=== PATIENT | female | born 1960 | race Caucasian/White ===

== ENCOUNTER 2018-05-23 08:50 | Emergency (ER) | payer OTHER ==
[~2018-05-23] VITALS: Ht 165.1 cm; Wt 76.7 kg
[2018-05-23 08:50] VITALS: BP_SYST 136
[2018-05-23] MEDS ORDERED: DIPHENHYDRAMINE HCL 25 MG CAPSULE PO ONE (09:15)
[2018-05-23] MEDS ORDERED: PREDNISONE 20 MG TABLET PO ONE (09:15)
[2018-05-23 09:50] VITALS: BP_SYST 124
== END 2018-05-23 09:50 | disposition home or self-care (01) ==
LOC: SED 08:50
DX: L23.9 Allergic contact dermatitis, unspecified cause (principal); R03.0 Elevated blood-pressure reading, without diagnosis of hypertension
CPT/HCPCS: 99283; J7512; Q0163

== ENCOUNTER 2018-06-07 08:31 | Outpatient (CLI) | payer OTHER ==
[2018-06-07 10:43] LABS: BASOPHILS % (AUTO) 0.6 % (0.0-2.0); EOSINOPHILS # (AUTO) 0.1 K/uL (0.0-0.4); EOSINOPHILS % (AUTO) 1.1 % (0.0-4.0); HEMATOCRIT 42.1 % (36-48); HEMOGLOBIN 13.5 g/dL (12.0-16.0); LYMPHOCYTES # (AUTO) 1.7 K/uL (1.0-5.5); LYMPHOCYTES % (AUTO) 31.8 % (20.5-51.5); MEAN CORPUSCULAR HEMOGLOBIN 27 pg (27-31); MEAN CORPUSCULAR HGB CONC 32 % (32-36); MEAN CORPUSCULAR VOLUME 85 fL (79.0-98.0); MONOCYTES # (AUTO) 0.4 K/uL (0.0-1.0); MONOCYTES % (AUTO) 6.5 % (1.7-9.3); NEUTROPHILS # (AUTO) 3.3 K/uL (1.8-7.7); PLATELET COUNT (AUTO) 230 K/uL (130-430); RED BLOOD CELL COUNT(AUTO) 4.98 MIL/uL (4.2-6.2); RED CELL DISTRIBUTION WIDTH 12.3 % (9.0-15.0); WHITE BLOOD COUNT (AUTO) 5.5 K/uL (4.8-10.8)
[2018-06-07 11:22] LABS: ALBUMIN 3.7 g/dL (3.4-4.8); CALCIUM 9.3 mg/dL (8.4-11.0); CREATININE 0.59 mg/dL (0.55-1.30); POTASSIUM 3.9 mmol/L (3.5-5.1); THYROID STIMULATING HORMONE 0.98 uIu/mL (0.34-4.82); TOTAL BILIRUBIN 0.4 mg/dL (0.0-1.0)
[2018-06-09 18:46] LABS: HEMOGLOBIN A1C 6.1 % (4.8-5.6)
== END 2018-06-07 20:40 | disposition home or self-care (01) ==
LOC: SUS 08:31
PROVIDERS: ATTEND Internal Medicine
DX: Z12.31 Encounter for screening mammogram for malignant neoplasm of breast (principal); R10.2 Pelvic and perineal pain; R93.2 Abnormal findings on diagnostic imaging of liver and biliary tract; E04.9 Nontoxic goiter, unspecified
CPT/HCPCS: 36415; 76536-TC; 76700-TC; 76830-TC; 76857; 77067; 80053; 80061; 82306; 82607; 83036; 84443-TC; 85025

== ENCOUNTER 2018-07-09 12:17 | Outpatient (CLI) | payer OTHER ==
[2018-07-10 11:02] LABS: HEPATITIS B CORE AB, TOTAL Negative (Negative); HEPATITIS C VIRUS AB <0.1 s/co ratio (0.0-0.9)
[2018-07-11 05:13] LABS: HEPATITIS Be AG Negative (Negative)
== END 2018-07-09 21:14 | disposition home or self-care (01) ==
LOC: SLB 12:17
PROVIDERS: ATTEND Internal Medicine Hospice and Palliative Medicine
DX: Z77.21 Contact with and (suspected) exposure to potentially hazardous body fluids (principal); S60.949A Unspecified superficial injury of unspecified finger, initial encounter; W46.0XXA Contact with hypodermic needle, initial encounter; Y93.9 Activity, unspecified; Y92.239 Unspecified place in hospital as the place of occurrence of the external cause; Y99.0 Civilian activity done for income or pay
CPT/HCPCS: 36415; 86704; 86706; 86803; 87350

== ENCOUNTER 2018-10-31 15:19 | Outpatient (CLI) | payer OTHER ==
[2018-11-01 11:17] LABS: HEPATITIS B CORE AB, TOTAL Negative (Negative); HEPATITIS B SURFACE AG Negative (Negative); HEPATITIS C VIRUS AB <0.1 s/co ratio (0.0-0.9)
== END 2018-10-31 21:21 | disposition home or self-care (01) ==
LOC: SLB 15:19
PROVIDERS: ATTEND Internal Medicine Hospice and Palliative Medicine
DX: Z77.21 Contact with and (suspected) exposure to potentially hazardous body fluids (principal); S60.949A Unspecified superficial injury of unspecified finger, initial encounter; W46.0XXA Contact with hypodermic needle, initial encounter; Y93.F9 Activity, other caregiving; Y92.239 Unspecified place in hospital as the place of occurrence of the external cause; Y99.0 Civilian activity done for income or pay
CPT/HCPCS: 36415; 86704; 86706; 86803; 87340

== ENCOUNTER 2019-01-15 14:59 | Inpatient (IN) | payer OTHER ==
[~2019-01-15] VITALS: Ht 165.1 cm; Wt 74.6 kg
[2019-01-15 15:00] VITALS: BP_SYST 156
--- NOTE | 2019-01-15 15:00 | NUR ---
BROUGHT IN WHEELCHAIR BACK TO BED #3 AND TRIAGED. REPORT GIVEN TO WAQAR
--- NOTE | 2019-01-15 15:29 | NUR ---
# 20 gauge angiocath placed to left ac. Use of asceptic technique. Opsite placed over site. Blood return noted. Blood for lab drawn from site. Flushed with 10 cc of normal saline. No evidence of infiltration noted. Patient tolerated well.
[2019-01-15] MEDS ORDERED: NACL 0.9% 1,000 ML IV ONE (15:30)
[2019-01-15] MEDS ORDERED: MECLIZINE HCL 25 MG TABLET (ANITVERT) PO ONE (15:30)
[2019-01-15] MEDS ORDERED: ACETAMINOPHEN 500 MG TABLET PO ONE (15:30)
--- NOTE | 2019-01-15 15:30 | NUR ---
PATIENT CAME IN FROM WORK COMPLAINING OF SUDDEN ONSET OF [place] AND DIZZINESS. PATIENT STATES SHE HAD ONE EPISODE OF VOMITING. PATIENT ALSO COMPLAINING OF HEADACHE 01/07. PATIENT NOT COMPLAINING OF SOB. PATIENT STATES SHE ATE LUNCH TODAY IN THE [place]. PATIENT ALERT AND ORIENTED X4.
--- NOTE | 2019-01-15 15:37 | NUR ---
PT HR DOWN TO 44, ALERT STAFF BY FOREST ENGINEER, APPROACHED PT AND SHE SAID SHE WAS RESTING. STATES SHE FELT A LITTLE BETTER AT THIS TIME. HR QUICKLY RETURNED TO 68-70, DR EASLEY AWARE OF INCIDENT
--- NOTE | 2019-01-15 15:45 | NUR ---
PATIENT LEFT TO CT VIA GURNEY IN STABLE CONDITION.
--- NOTE | 2019-01-15 15:52 | NUR ---
PATIENT BACK FROM CT IN STABLE CONDITION.
[2019-01-15] MEDS ORDERED: CYM30 PO (15:56)
[2019-01-15] MEDS ORDERED: MULT-1184 PO (15:56)
[2019-01-15] MEDS ORDERED: MOM PO (15:56)
[2019-01-15] MEDS ORDERED: HYDROMORPHONE IM (15:56)
[2019-01-15] MEDS ORDERED: CRAN1TAB5 PO (15:56)
[2019-01-15] MEDS ORDERED: GEL3000G TP (15:56)
[2019-01-15] MEDS ORDERED: LISI10TA5 PO (15:56)
[2019-01-15] MEDS ORDERED: HYDR-4272 PO (15:56)
[2019-01-15 15:57] LABS: HEMATOCRIT 38.4 % (36-48); HEMOGLOBIN 12.5 g/dL (12.0-16.0); MEAN CORPUSCULAR HEMOGLOBIN 28 pg (27-31); MEAN CORPUSCULAR HGB CONC 33 % (32-36); MEAN CORPUSCULAR VOLUME 85 fL (79.0-98.0); RED BLOOD CELL COUNT(AUTO) 4.54 MIL/uL (4.2-6.2); RED CELL DISTRIBUTION WIDTH 13.7 % (9.0-15.0); WHITE BLOOD COUNT (AUTO) 5.6 K/uL (4.8-10.8)
[2019-01-15 15:58] LABS: BASOPHILS % (AUTO) 0.3 % (0.0-2.0); EOSINOPHILS % (AUTO) 0.8 % (0.0-4.0); LYMPHOCYTES # (AUTO) 1.9 K/uL (1.0-5.5); LYMPHOCYTES % (AUTO) 33.7 % (20.5-51.5); MONOCYTES # (AUTO) 0.3 K/uL (0.0-1.0); MONOCYTES % (AUTO) 5.8 % (1.7-9.3); NEUTROPHILS # (AUTO) 3.3 K/uL (1.8-7.7); NEUTROPHILS % (AUTO) 59.4 % (40.0-70.0); PLATELET COUNT (AUTO) 216 K/uL (130-430)
[2019-01-15] MEDS ORDERED: PREG75CA PO (15:58)
[2019-01-15] MEDS ORDERED: AMIN30LI2 PO (15:58)
[2019-01-15] MEDS ORDERED: AMIN30LI25 PO (15:59)
[2019-01-15 16:02] LABS: CALCIUM 8.8 mg/dL (8.4-11.0); CREATININE 0.76 mg/dL (0.55-1.30); POTASSIUM 3.2 mmol/L (3.5-5.1)
[2019-01-15] MEDS ORDERED: BUDE6HFA INH (16:03)
[2019-01-15] MEDS ORDERED: ALBU8.5H8 INH (16:03)
[2019-01-15 16:05] LABS: ALBUMIN 3.6 g/dL (3.4-4.8); PROTHROMBIN TIME 9.9 SECS (9.5-12.5); TOTAL BILIRUBIN 0.2 mg/dL (0.0-1.0)
[2019-01-15] MEDS ORDERED: INSU100I30 SQ (16:07)
[2019-01-15] MEDS ORDERED: BACL10TA PO (16:07)
[2019-01-15] MEDS ORDERED: DOCU-144 PO (16:07)
[2019-01-15] MEDS ORDERED: VITD2000 PO (16:07)
[2019-01-15] MEDS ORDERED: ACET-2165 PO (16:07)
[2019-01-15] MEDS ORDERED: ASPI-1155 PO (16:07)
[2019-01-15] MEDS ORDERED: ZINC220T PO (16:11)
[2019-01-15] MEDS ORDERED: ASCO500T20 PO (16:11)
[2019-01-15 16:15] LABS: BILIRUBIN,URINE NEGATIVE (NEGATIVE); BLOOD, URINE NEGATIVE (NEGATIVE); CLARITY/URINE CLEAR (CLEAR); COLOR,URINE YELLOW (YELLOW); GLUCOSE,URINE NEGATIVE (NEGATIVE); KETONES,URINE NEGATIVE (NEGATIVE); LEUKOCYTE ESTERASE ,URINE 2+ (NEGATIVE); NITRITE, URINE NEGATIVE (NEGATIVE); PH,URINE 5.5 (5.0-8.0); PROTEIN URINE NEGATIVE (NEGATIVE); UROBILINOGEN,URINE 0.2 (0.2-1.0)
[2019-01-15 16:21] LABS: BARBITURATE, URINE NEGATIVE (NEG <=200); BENZODIAZEPINE, URINE NEGATIVE (NEG <=150); CANNABINOID, URINE NEGATIVE (NEG <=50); COCAINE, URINE NEGATIVE (NEG <=150); METHAMPHETAMINES SCREEN,URINE NEGATIVE (NEG <=500); OPIATE, URINE NEGATIVE (NEG <=100); PHENCYCLIDINE SCREEN,URINE NEGATIVE (NEG <=25); UR TRICYCLIC ANTIDEPRESSANTS NEGATIVE (NEG <=300); URINE AMPHETAMINE NEGATIVE (NEG <=500); URINE METHADONE NEGATIVE (NEG <=200); URINE OXYCODONE SCREEN NEGATIVE (NEG <=100); URINE PROPOXYPHENE SCREEN NEGATIVE (NEG <=300)
[2019-01-15 16:33] LABS: RBC,URINE 0-3 /HPF (0-3)
[2019-01-15 16:34] LABS: BACTERIA,URINE FEW /HPF (None Seen); MUCUS,URINE None Seen /LPF (None Seen)
--- NOTE | 2019-01-15 16:48 | NUR ---
PATIENT STATES HEADACHE DOING BETTER BUT STILL DIZZY. MD EASLEY AWARE.
[2019-01-15] MEDS ORDERED: cefTRIAXone 1 GM in D5W 50 ML IV ONE (18:00)
--- NOTE | 2019-01-15 18:20 | NUR ---
Patient will be admitted to care of Dr Michael. Admitted to tele unit. Will go to room 129B. Belongings list completed. Summary report printed. Report will be given at bedside.
--- NOTE | 2019-01-15 18:34 | NUR ---
MEDICATION RECONCILATION DONE IN ERROR Addendum: 01/15/19 at 1834 by DIAMANTE ALL MEDS CANCELLED.
--- NOTE | 2019-01-15 18:35 | NUR ---
Medication reconciliation completed with information provided by PATIENT. Patient states she doesnt take home meds.
[2019-01-15] MEDS ORDERED: cefTRIAXone 1 GM VIAL ONE (18:40)
--- NOTE | 2019-01-15 18:47 | NUR ---
Transfer to tele via ACLS protocol. Licensed nurse present. IV present no signs or symptoms of infiltration.
--- NOTE | 2019-01-15 18:53 | NUR ---
Admission Note Received patient from ER with diagnosis of syncope. Initial Plan of Care discussed-patient verbalized understanding. . Oriented to room, call light, pain management and safety.
[2019-01-15 19:13] VITALS: BP_SYST 143
--- NOTE | 2019-01-15 19:15 | NUR ---
OPENING NOTE Late entry due to patient care. Bedside report received from dayshift nurse. Patient received lying in bed, HOB raised, no s/s of acute distress noted. Patient states that she is comfortable at this time. IV site patent, no signs of infiltration or infection noted. Skin warm and dry to touch. Call light with patient, instructed to call for assistance when needed, patient verbalized understanding. Bed is locked and at lowest position. Will continue to monitor.
[2019-01-15 19:30] LABS: THYROID STIMULATING HORMONE 1.26 uIu/mL (0.34-4.82)
[2019-01-15 20:00] VITALS: BP_SYST 128
[2019-01-15] MEDS ORDERED: ACETAMINOPHEN 325 MG TABLET PO PRN (20:00)
--- NOTE | 2019-01-15 20:55 | NUR ---
CONSULTATION PAGED YES REASON FOR CONSULTATION: SYNCOPE WAS CONSULT CALLED? YES PERSON WHO WAS NOTIFIED: NINI CONSULTING PHYSICIAN: DAVID SKINNER PELTS SPECIALTY: CLEANING PORTER SKINNER PELTS PHONE NUMBER: [phone] REQUESTING PHYSICIAN: BJ
--- NOTE | 2019-01-15 21:00 | NUR ---
ROUNDS Patient in bed, resting at this time. No signs of discomfort noted. Chest rise and fall even bilaterally. Call light with patient.
[2019-01-15] MEDS: NITROFURANTOIN MONOHYD/M-CRYST 100 MG CAPSULE PO SCH (21:13)
--- NOTE | 2019-01-15 22:40 | NUR ---
DIZZY Patient complained of feeling dizzy. Informed patient that MD will be paged. Will continue to monitor and reassess.
--- NOTE | 2019-01-15 22:41 | NUR ---
PAGED I PAGED DR. LORENZO @ [phone] I SPOKE WITH JACK LORENZO CALLED BACK @ [phone]
[2019-01-15] MEDS: MECLIZINE HCL 25 MG TABLET (ANITVERT) PO PRN (22:56)
--- NOTE | 2019-01-15 23:30 | NUR ---
ASSISTED TO BATHROOM Patient requested for assistance to be walked to bathroom and back to bed. Patient tolerated activity well, states that she still feels dizzy but tolerable. Call light with patient. Will continue to monitor.
--- NOTE | 2019-01-16 01:29 | NUR ---
CONSULTATION PAGED: YES REASON FOR CONSULTATION: DIZZINESS WAS CONSULT CALLED? YES PERSON WHO WAS NOTIFIED: KAILEE CONSULTING PHYSICIAN: ADIEL RENDON ASSISTANT PRODUCTION EDITOR SPECIALTY: NEUROLOGY ASSISTANT PRODUCTION EDITOR PHONE NUMBER: [phone] REQUESTING PHYSICIAN: DR. LORENZO
--- NOTE | 2019-01-16 01:30 | NUR ---
ROUNDS Patient in bed sleeping at this time. No s/s of acute distress noted. Breathing even and unlabored. Call light with patient. Will continue to monitor.
[2019-01-16 02:58] VITALS: BP_SYST 125
--- NOTE | 2019-01-16 03:20 | NUR ---
ROUNDS Patient sleeping at this time. No s/s of acute distress noted. Breathing even and unlabored. Call light with patient. Will continue to monitor.
[2019-01-16 06:29] LABS: BASOPHILS % (AUTO) 0.7 % (0.0-2.0); EOSINOPHILS # (AUTO) 0.1 K/uL (0.0-0.4); EOSINOPHILS % (AUTO) 1.9 % (0.0-4.0); HEMATOCRIT 37.4 % (36-48); HEMOGLOBIN 12.2 g/dL (12.0-16.0); LYMPHOCYTES # (AUTO) 2.1 K/uL (1.0-5.5); LYMPHOCYTES % (AUTO) 52.3 % (20.5-51.5); MEAN CORPUSCULAR HEMOGLOBIN 27 pg (27-31); MEAN CORPUSCULAR HGB CONC 33 % (32-36); MEAN CORPUSCULAR VOLUME 84 fL (79.0-98.0); MONOCYTES # (AUTO) 0.3 K/uL (0.0-1.0); MONOCYTES % (AUTO) 6.9 % (1.7-9.3); NEUTROPHILS # (AUTO) 1.5 K/uL (1.8-7.7); NEUTROPHILS % (AUTO) 38.2 % (40.0-70.0); PLATELET COUNT (AUTO) 209 K/uL (130-430); RED BLOOD CELL COUNT(AUTO) 4.45 MIL/uL (4.2-6.2); RED CELL DISTRIBUTION WIDTH 13.5 % (9.0-15.0); WHITE BLOOD COUNT (AUTO) 3.9 K/uL (4.8-10.8)
--- NOTE | 2019-01-16 06:30 | NUR ---
CLOSING NOTES Patient in bed sleeping at this time. No s/s of acute distress noted. Breathing even and unlabored. HOB raised. IV site patent, no signs of infiltration or infection noted. SCDs attached and operating. All needs met throughout shift. Fall and safety precautions maintained throughout shift. Will continue to monitor until patient care is endorsed to oncoming dayshift nurse.
[2019-01-16 07:03] LABS: ALBUMIN 3.5 g/dL (3.4-4.8); CREATININE 0.5 mg/dL (0.55-1.30); POTASSIUM 3.6 mmol/L (3.5-5.1); TOTAL BILIRUBIN 0.4 mg/dL (0.0-1.0)
--- NOTE | 2019-01-16 07:30 | NUR ---
Opening note Patient resting in bed at this time, No SOB, no complaints of pain. A/O x4. Patient complains of dizziness when standing up, educate patient to call for assistance when ambulating. Patient verbalized understanding. IV site patent, and intact. No bleeding noted. On safety and seizure precautions, bed kept in lowest position, bed alarm on, padded side rails in place, 2 side rails up, call light within reach. Will continue to monitor.
[2019-01-16 08:12] LABS: ERYTHROCYTE SEDIMENTATION RATE 4 MM/HR (0-20)
[2019-01-16] MEDS: NITROFURANTOIN MONOHYD/M-CRYST 100 MG CAPSULE PO SCH ×2 (08:20→20:22)
[2019-01-16] MEDS: MECLIZINE HCL 25 MG TABLET (ANITVERT) PO PRN (08:20)
[2019-01-16] MEDS: ACETAMINOPHEN 325 MG TABLET PO PRN (08:21)
[2019-01-16 08:23] VITALS: BP_SYST 121
--- NOTE | 2019-01-16 09:30 | NUR ---
Medications All morning medications given as ordered, patient complained of dizziness and back pain. PRN medications given as ordered, effective. No complaints of pain at this time.
--- NOTE | 2019-01-16 10:00 | NUR ---
MRI Patient went for MRI scan in wheelchair, in stable condition.
--- NOTE | 2019-01-16 10:33 | NUR ---
Nutrition Update Alexi Scale 18 noted. Pt admitted for syncope. Diet: regular BMI: 27.4 kg/m2 RD to follow per nutrition care standards.
--- NOTE | 2019-01-16 10:45 | NUR ---
Rounds patient returned from MRI scan in stable condition, Reconnected to Tele monitor. In stable condition.
--- NOTE | 2019-01-16 12:30 | NUR ---
Lunch Patient sitting up in bed, eating lunch. Tolerating well. No nausea, no vomiting noted.
--- NOTE | 2019-01-16 14:30 | NUR ---
Rounds Patient resting in bed, family at bedside. Patients family states she never had seizure, she has dizziness with Nausea/Vomiting 2xweek. Will inform Dr. Michael.
[2019-01-16 14:47] VITALS: BP_SYST 136
--- NOTE | 2019-01-16 16:50 | NUR ---
MD rounds Patient sitting up in bed, visitor at bedside. Plan of care discussed with patient and family. Patient verbalized understanding.
[2019-01-16] MEDS ORDERED: LORATADINE 10 MG TABLET PO SCH (17:15)
[2019-01-16] MEDS ORDERED: LORATADINE 10 MG TABLET PO ONE (17:15)
[2019-01-16 17:27] VITALS: BP_SYST 120
[2019-01-16] MEDS ORDERED: ATORVASTATIN 20 MG TABLET PO ONE (17:30)
[2019-01-16] MEDS ORDERED: ASPIRIN 81 MG TABLET(ECOTRIN) PO ONE (17:30)
--- NOTE | 2019-01-16 18:48 | NUR ---
Closing note Patient resting in bed at this time, No SOB, no complaints of pain.No nausea, no vomiting, no complaints of pain. IV site patent, and intact. No bleeding noted. On safety and seizure precautions, bed kept in lowest position, bed alarm on, padded side rails in place, 2 side rails up, call light within reach. Patient in stable condition.
[2019-01-16 19:00] VITALS: BP_SYST 140
--- NOTE | 2019-01-16 19:00 | NUR ---
CHANGE OF SHIFT.PT.PRESENTS QUIESCENT AFFECT;CALM,FAMILY@BEDSIDE.PT.PRESENTS NO FURTHER C/O DIZZINESS.NO C/O PAIN,NAUSEA.PT.CAPABLE TO AMBULATE.IV ACCESS;LOCK.GENERAL STATUS STABLE.RESPIRATORY STATUS STABLE.CALL LIGHT/TELEPHONE W/IN THE REACH OF THE PT.I HAVE PROVIDED SOCKS;CLEAN,TO THE PT.
[2019-01-16 20:00] VITALS: BP_SYST 140
--- NOTE | 2019-01-16 20:00 | NUR ---
pt.assessed.v/s assessed;values w/in normal limits.no c/o pain,nausea nor dizziness.i have apprised the pt.that snacks/beverages are available w/in the shift.no requests posited @this hour.family@bedside.o2-sat%=96%@room air.general status stable.respiratory status stable.call light/telephone w/in the reach of the pt.
--- NOTE | 2019-01-16 21:00 | NUR ---
2100pmedications administered.no requests posited@this hour.
--- NOTE | 2019-01-16 21:25 | NUR ---
RN NOTES: REPORT RECEIVED FROM MIMA STANFORD ; WILL CONTINUE WITH PT CARE .
--- NOTE | 2019-01-16 21:30 | NUR ---
pt.reassignment:i have provided the pt's report/data to joselito.joselito to assume the care of the pt.for the remainder of the shift.
--- NOTE | 2019-01-16 21:45 | NUR ---
RN NOTES: PT IS AWAKE AND ORIENTED , COMFORTABLE ; ASSESSMENT DONE ; DENIED ANY CHEST PAIN OR SOB ; NOT IN ANY ACUTE DISTRESS; RESPIRATION IS EVEN AND NON LABORED ; ALL NEEDS MET ; BED IN LOW AND LOCK POSITION , CALL GERBER IN REACH ; ENCOURAGED PT TO CALL FOR ANY HELP ; WILL CONTINUE TO MONITOR PT .
[2019-01-17] VITALS: BP_SYST 143
--- NOTE | 2019-01-17 00:06 | NUR ---
RN NOTES: PT IS SLEEPING , COMFORTABLE ; NOT IN ANY ACUTE DISTRESS; RESPIRATION IS EVEN AND NON LABORED ; WILL CONTINUE TO MONITOR PT .
--- NOTE | 2019-01-17 02:30 | NUR ---
RN NOTES: PT IS SLEEPING , COMFORTABLE ; NOT IN ANY ACUTE DISTRESS; RESPIRATION IS EVEN AND NON LABORED ; WILL CONTINUE TO MONITOR PT .
--- NOTE | 2019-01-17 04:20 | NUR ---
RN NOTES: PT IS SLEEPING , COMFORTABLE ; NOT IN ANY ACUTE DISTRESS; RESPIRATION IS EVEN AND NON LABORED ; WILL CONTINUE TO MONITOR PT .
--- NOTE | 2019-01-17 06:32 | NUR ---
CLOSING NOTES: PT IS STILL SLEEPING , NOT IN ANY ACUTE DISTRESS ; NO C/O ANY CHEST PAIN OR SOB DURING THIS SHIFT ; ALL NEEDS MET ; WILL CONTINUE TO MONITOR AND WILL ENDORSE TO NEXT SHIFT NURSE.
--- NOTE | 2019-01-17 07:20 | NUR ---
Opening note Patient resting in bed at this time, No SOB, no complaints of pain. A/O x4. No nausea, no vomiting. No complaints of dizziness, educated patient to call for assistance when ambulating. Patient verbalized understanding. IV site patent, and intact. No bleeding noted. SCD in place. On safety, bed kept in lowest position, bed alarm on, padded side rails in place, 2 side rails up, call light within reach. Will continue to monitor.
[2019-01-17 08:05] VITALS: BP_SYST 143
[2019-01-17] MEDS: ACETAMINOPHEN 325 MG TABLET PO PRN (08:13)
[2019-01-17] MEDS: NITROFURANTOIN MONOHYD/M-CRYST 100 MG CAPSULE PO SCH (08:13)
[2019-01-17] MEDS ORDERED: LORATADINE 10 MG TABLET PO SCH (09:00)
[2019-01-17] MEDS ORDERED: ASPIRIN 81 MG TABLET(ECOTRIN) PO SCH (09:00)
[2019-01-17] MEDS ORDERED: ATORVASTATIN 20 MG TABLET PO SCH (09:00)
--- NOTE | 2019-01-17 09:30 | NUR ---
Medications All morning medications given as ordered, patient complained back pain. PRN medications given as ordered, effective. No complaints of pain at this time. Patient resting comfortably.
--- NOTE | 2019-01-17 11:30 | NUR ---
Rounds Offered to ambulate patient to the restroom, patient walked with steady gait. Oral care tools provided, offered linen change, patient refused. Assisted patient back to bed, patient in stable condition.
[2019-01-17] MEDS ORDERED: cefTRIAXone 1 GM IVPB PREMIX 50 ML IV ONE (13:00)
[2019-01-17 13:14] VITALS: BP_SYST 128
--- NOTE | 2019-01-17 13:17 | NUR ---
MD rounds Patient seen by Dr. Michael, patient okay to discharge home once cleared with Dr. Kline, and Dr. Ness.
--- NOTE | 2019-01-17 13:18 | NUR ---
Dr. Kline rounds Dr. Kline stated patient is cleared to go home.
--- NOTE | 2019-01-17 13:20 | NUR ---
Dr. Thi Ness called back, patient okay to discharge home.
--- NOTE | 2019-01-17 13:40 | NUR ---
Iv antibiotic Patient to be discharged after IV antibiotic has completed. IV Antibiotics infusing as ordered. No adverse side effects noted. Patient in stable condition.
[2019-01-17 14:56] VITALS: BP_SYST 128
--- NOTE | 2019-01-17 15:40 | NUR ---
D/C Patient Patient given medication reconciliation form and D/C instructions. Exit Care provided. Patient verbalized understanding. MD discussed with patient the results and treatment provided. Ambulatory with steady gait for discharge to home. Patient in stable condition, ID band removed. IV catheter removed, intact and dressing applied, no active bleeding. Rx of medications given. Patient educated on pain management. All belongings sent with patient.
== END 2019-01-17 15:30 | disposition home or self-care (01) | DRG 690 ==
LOC: SED 14:59 → STU 18:18
PROVIDERS: ADMIT Internal Medicine; ATTEND Internal Medicine
DX: N39.0 Urinary tract infection, site not specified (principal); R42 Dizziness and giddiness; E78.5 Hyperlipidemia, unspecified; R55 Syncope and collapse; R51 Headache; R07.89 Other chest pain; E23.6 Other disorders of pituitary gland; Z90.49 Acquired absence of other specified parts of digestive tract
CPT/HCPCS: 36415; 70450-TC; 70551; 71045; 80053; 80061; 80307; 81000-TC; 82533; 83735-TC; 83880; 84443-TC; 84484; 85025; 85379; 85610-TC; 85651-TC; 85730-TC; 87086; 93005; 93306; 93880; 95816; 96361; 96365; 99285; G0378; J0696; J7030; J7060; J8597

== ENCOUNTER 2019-02-05 15:18 | Outpatient (CLI) | payer OTHER ==
[2019-02-06 05:20] LABS: HEPATITIS B CORE AB, TOTAL Negative (Negative); HEPATITIS B SURFACE AG Negative (Negative); HEPATITIS C VIRUS AB <0.1 s/co ratio (0.0-0.9)
== END 2019-02-05 17:58 | disposition home or self-care (01) ==
LOC: SLB 15:18
PROVIDERS: ATTEND Internal Medicine Hospice and Palliative Medicine
DX: Z77.21 Contact with and (suspected) exposure to potentially hazardous body fluids (principal); W46.0XXA Contact with hypodermic needle, initial encounter; T14.8XXA Other injury of unspecified body region, initial encounter; Y93.F9 Activity, other caregiving; Y92.238 Other place in hospital as the place of occurrence of the external cause; Y99.0 Civilian activity done for income or pay; Z20.5 Contact with and (suspected) exposure to viral hepatitis
CPT/HCPCS: 36415; 86704; 86706; 86803; 87340

== ENCOUNTER 2019-08-01 08:10 | Outpatient (CLI) | payer OTHER ==
[2019-08-02 06:06] LABS: HEPATITIS B CORE AB, TOTAL Negative (Negative); HEPATITIS B SURFACE AG Negative (Negative); HEPATITIS C VIRUS AB <0.1 s/co ratio (0.0-0.9)
== END 2019-08-01 21:15 | disposition home or self-care (01) ==
LOC: SLB 08:10
PROVIDERS: ATTEND Internal Medicine Hospice and Palliative Medicine
DX: Z77.21 Contact with and (suspected) exposure to potentially hazardous body fluids (principal)
CPT/HCPCS: 36415; 86704; 86706; 86803; 87340

== ENCOUNTER 2020-05-19 07:05 | Outpatient (CLI) | payer OTHER ==
[2020-05-19 08:19] LABS: BILIRUBIN,URINE NEGATIVE (NEGATIVE); CLARITY/URINE CLEAR (CLEAR); COLOR,URINE YELLOW (YELLOW); GLUCOSE,URINE NEGATIVE (NEGATIVE); KETONES,URINE NEGATIVE (NEGATIVE); LEUKOCYTE ESTERASE ,URINE NEGATIVE (NEGATIVE); NITRITE, URINE NEGATIVE (NEGATIVE); PROTEIN URINE NEGATIVE (NEGATIVE); UROBILINOGEN,URINE 0.2 (0.2-1.0)
[2020-05-19 08:22] LABS: BASOPHILS % (AUTO) 0.5 % (0.0-2.0); EOSINOPHILS # (AUTO) 0.1 K/uL (0.0-0.4); EOSINOPHILS % (AUTO) 2.2 % (0.0-4.0); HEMATOCRIT 37.3 % (36-48); HEMOGLOBIN 12.3 g/dL (12.0-16.0); LYMPHOCYTES # (AUTO) 1.5 K/uL (1.0-5.5); LYMPHOCYTES % (AUTO) 42.4 % (20.5-51.5); MEAN CORPUSCULAR HEMOGLOBIN 28 pg (27-31); MEAN CORPUSCULAR HGB CONC 33 % (32-36); MEAN CORPUSCULAR VOLUME 84 fL (79.0-98.0); MONOCYTES # (AUTO) 0.3 K/uL (0.0-1.0); MONOCYTES % (AUTO) 7.5 % (1.7-9.3); NEUTROPHILS # (AUTO) 1.7 K/uL (1.8-7.7); NEUTROPHILS % (AUTO) 47.4 % (40.0-70.0); PLATELET COUNT (AUTO) 195 K/uL (130-430); RED BLOOD CELL COUNT(AUTO) 4.46 MIL/uL (4.2-6.2); RED CELL DISTRIBUTION WIDTH 13.7 % (9.0-15.0); WHITE BLOOD COUNT (AUTO) 3.6 K/uL (4.8-10.8)
[2020-05-19 08:29] LABS: BLOOD, URINE TRACE (NEGATIVE)
[2020-05-19 08:41] LABS: BACTERIA,URINE RARE /HPF (None Seen); WBC,URINE NONE SEEN /HPF (0-3)
[2020-05-19 08:51] LABS: ALBUMIN 3.9 g/dL (3.4-4.8); CREATININE 0.54 mg/dL (0.55-1.30); POTASSIUM 3.9 mmol/L (3.5-5.1); THYROID STIMULATING HORMONE 2.69 uIu/mL (0.34-4.82); TOTAL BILIRUBIN 0.3 mg/dL (0.0-1.0)
[2020-05-19 09:02] LABS: ERYTHROCYTE SEDIMENTATION RATE 7 MM/HR (0-20)
[2020-05-23 11:24] LABS: HEMOGLOBIN A1C 6.1 % (4.8-5.6)
== END 2020-05-20 07:14 | disposition home or self-care (01) ==
LOC: SLB 07:05
PROVIDERS: ATTEND Internal Medicine
DX: Z00.00 Encounter for general adult medical examination without abnormal findings (principal)
CPT/HCPCS: 36415; 80053; 80061; 81000-TC; 82306; 82607; 83036; 83690-TC; 84443-TC; 85025; 85651-TC

== ENCOUNTER 2020-05-21 07:39 | Outpatient (CLI) | payer OTHER ==
[2020-05-21] MEDS ORDERED: DIATR MEGLU/DIATRIZ SOD 30 ML SOLUTION PO ONE ×2 (08:24→09:27)
[2020-05-21 09:06] LABS: PROTHROMBIN TIME 9.9 SECS (9.5-12.5)
== END 2020-05-21 20:06 | disposition home or self-care (01) ==
LOC: SCT 07:39
PROVIDERS: ATTEND Internal Medicine
DX: Z12.31 Encounter for screening mammogram for malignant neoplasm of breast (principal); I70.0 Atherosclerosis of aorta; Z90.49 Acquired absence of other specified parts of digestive tract
CPT/HCPCS: 36415; 74177; 77067; 82378; 85610; 85730; Q9964; Q9967

== ENCOUNTER 2020-09-02 08:31 | Outpatient (CLI) | payer OTHER ==
[2020-09-02 09:59] LABS: BASOPHILS % (AUTO) 0.6 % (0.0-2.0); HEMATOCRIT 39.7 % (36-48); HEMOGLOBIN 13.2 g/dL (12.0-16.0); LYMPHOCYTES # (AUTO) 1.6 K/uL (1.0-5.5); LYMPHOCYTES % (AUTO) 35.5 % (20.5-51.5); MEAN CORPUSCULAR HEMOGLOBIN 28 pg (27-31); MEAN CORPUSCULAR HGB CONC 33 % (32-36); MEAN CORPUSCULAR VOLUME 84 fL (79.0-98.0); MONOCYTES # (AUTO) 0.2 K/uL (0.0-1.0); NEUTROPHILS # (AUTO) 2.6 K/uL (1.8-7.7); NEUTROPHILS % (AUTO) 57.9 % (40.0-70.0); PLATELET COUNT (AUTO) 201 K/uL (130-430); RED BLOOD CELL COUNT(AUTO) 4.73 MIL/uL (4.2-6.2); RED CELL DISTRIBUTION WIDTH 13.4 % (9.0-15.0); WHITE BLOOD COUNT (AUTO) 4.4 K/uL (4.8-10.8)
[2020-09-02 10:00] LABS: BILIRUBIN,URINE NEGATIVE (NEGATIVE); BLOOD, URINE NEGATIVE (NEGATIVE); COLOR,URINE YELLOW (YELLOW); GLUCOSE,URINE NEGATIVE (NEGATIVE); KETONES,URINE TRACE (NEGATIVE); LEUKOCYTE ESTERASE ,URINE 2+ (NEGATIVE); NITRITE, URINE NEGATIVE (NEGATIVE); PROTEIN URINE NEGATIVE (NEGATIVE); UROBILINOGEN,URINE 0.2 (0.2-1.0)
[2020-09-02 10:08] LABS: CREATININE 0.64 mg/dL (0.55-1.30); POTASSIUM 3.8 mmol/L (3.5-5.1); TOTAL BILIRUBIN 0.3 mg/dL (0.0-1.0)
[2020-09-02 10:13] LABS: CLARITY/URINE SLIGHTLY HAZY (CLEAR)
[2020-09-02 10:41] LABS: BACTERIA,URINE MODERATE /HPF (None Seen); MUCUS,URINE 1+ /LPF (None Seen); RBC,URINE NONE SEEN /HPF (0-3)
== END 2020-09-02 20:51 | disposition home or self-care (01) ==
LOC: SLB 08:31
PROVIDERS: ATTEND Internal Medicine
DX: E78.5 Hyperlipidemia, unspecified (principal); E56.9 Vitamin deficiency, unspecified
CPT/HCPCS: 36415; 80053; 80061; 81000-TC; 82306; 85025; 86886; 86900; 86901

== ENCOUNTER 2020-12-03 10:53 | Outpatient (CLI) | payer OTHER ==
[2020-12-03 11:27] LABS: BASOPHILS % (AUTO) 0.3 % (0.0-2.0); EOSINOPHILS % (AUTO) 0.9 % (0.0-4.0); HEMATOCRIT 39.2 % (36-48); HEMOGLOBIN 12.9 g/dL (12.0-16.0); LYMPHOCYTES # (AUTO) 1.5 K/uL (1.0-5.5); LYMPHOCYTES % (AUTO) 39.5 % (20.5-51.5); MEAN CORPUSCULAR HEMOGLOBIN 28 pg (27-31); MEAN CORPUSCULAR HGB CONC 33 % (32-36); MEAN CORPUSCULAR VOLUME 85 fL (79.0-98.0); MONOCYTES # (AUTO) 0.3 K/uL (0.0-1.0); MONOCYTES % (AUTO) 7.4 % (1.7-9.3); NEUTROPHILS % (AUTO) 51.9 % (40.0-70.0); PLATELET COUNT (AUTO) 211 K/uL (130-430); RED BLOOD CELL COUNT(AUTO) 4.63 MIL/uL (4.2-6.2); RED CELL DISTRIBUTION WIDTH 13.4 % (9.0-15.0); WHITE BLOOD COUNT (AUTO) 3.9 K/uL (4.8-10.8)
[2020-12-03 11:31] LABS: BILIRUBIN,URINE NEGATIVE (NEGATIVE); BLOOD, URINE NEGATIVE (NEGATIVE); CLARITY/URINE CLEAR (CLEAR); COLOR,URINE YELLOW (YELLOW); GLUCOSE,URINE NEGATIVE (NEGATIVE); KETONES,URINE NEGATIVE (NEGATIVE); LEUKOCYTE ESTERASE ,URINE 2+ (NEGATIVE); NITRITE, URINE NEGATIVE (NEGATIVE); PH,URINE 7.5 (5.0-8.0); PROTEIN URINE NEGATIVE (NEGATIVE); UROBILINOGEN,URINE 0.2 (0.2-1.0)
[2020-12-03 11:52] LABS: BACTERIA,URINE FEW /HPF (None Seen); MUCUS,URINE 1+ /LPF (None Seen); RBC,URINE 0-3 /HPF (0-3)
[2020-12-03 11:59] LABS: ALANINE AMINOTRANSFERASE 22 U/L (12-78); ALBUMIN 3.9 g/dL (3.4-4.8); ANION GAP 5 (5-15); ASPARTATE AMINOTRANSFERASE 18 U/L (10-37); CALCIUM 8.7 mg/dL (8.4-11.0); CHLORIDE 109 mmol/L (98-107); GLUCOSE 101 mg/dL (70-99); POTASSIUM 4.4 mmol/L (3.5-5.1); SODIUM SERUM 145 mmol/L (136-145); THYROID STIMULATING HORMONE 1.88 uIu/mL (0.36-3.74); TOTAL BILIRUBIN 0.5 mg/dL (0.0-1.0); UREA NITROGEN, BLOOD 11 mg/dL (8-21)
[2020-12-03 12:00] LABS: GFR AFRICAN AMERICAN 110 mL/min (>90)
[2020-12-03 12:12] LABS: CHOLESTEROL 190 mg/dL (<200); HDL CHOLESTEROL 80 mg/dL (>55); LDL CHOLESTEROL 97 mg/dL (<100); TRIGLYCERIDES 81 mg/dL (30-150)
[2020-12-03 12:13] LABS: C-REACTIVE PROTEIN QUANT < 0.2 mg/dL (0-0.5)
[2020-12-03 12:14] LABS: ERYTHROCYTE SEDIMENTATION RATE 6 MM/HR (0-20)
== END 2020-12-04 16:01 | disposition home or self-care (01) ==
LOC: SLB 10:53
PROVIDERS: ATTEND Internal Medicine
DX: E78.5 Hyperlipidemia, unspecified (principal); L20.84 Intrinsic (allergic) eczema; R42 Dizziness and giddiness; E23.7 Disorder of pituitary gland, unspecified
CPT/HCPCS: 36415; 80053; 80061; 81000; 82306; 82607; 83036; 84443; 85025; 85651-TC; 86140; 87086

== ENCOUNTER 2021-01-11 14:33 | Emergency (ER) | payer OTHER ==
[~2021-01-11] VITALS: Ht 165.1 cm; Wt 76.2 kg
[2021-01-11 14:54] VITALS: BP_SYST 147
[2021-01-11] MEDS ORDERED: IBUP-1969 PO (17:04)
[2021-01-11 17:14] VITALS: BP_SYST 147
== END 2021-01-11 17:15 | disposition home or self-care (01) ==
LOC: SED 14:33
DX: S93.401A Sprain of unspecified ligament of right ankle, initial encounter (principal); S39.012A Strain of muscle, fascia and tendon of lower back, initial encounter; W01.0XXA Fall on same level from slipping, tripping and stumbling without subsequent striking against object, initial encounter; X50.1XXA Overexertion from prolonged static or awkward postures, initial encounter; Y93.89 Activity, other specified; Y92.89 Other specified places as the place of occurrence of the external cause; Y99.8 Other external cause status
CPT/HCPCS: 72100-TC; 99284

== ENCOUNTER 2021-01-28 07:22 | Day surgery (SDC) | payer OTHER, SELFPAY ==
[~2021-01-28] VITALS: Ht 165.1 cm; Wt 76.2 kg
[~2021-01-28 07:22] MED LIST: IBUP-1969 PO
[2021-01-28] MEDS ORDERED: MEPERIDINE 100 MG INJ. 100 MG/ML VIAL ONE (07:51)
[2021-01-28] MEDS ORDERED: MIDAZOLAM HCL 5 MG/5 ML VIAL ONE (07:51)
[2021-01-28] MEDS ORDERED: SIMETHICONE 40 MG/0.6 ML ML ONE (07:51)
[2021-01-28] MEDS ORDERED: fentaNYL CITRATE/PF 100 MCG/2 ML AMP ONE (08:25)
[2021-01-28 10:12] VITALS: BP_SYST 122
== END 2021-01-28 10:30 | disposition home or self-care (01) ==
LOC: SMU 07:22 → SDS 07:22
PROVIDERS: ATTEND Internal Medicine
DX: K59.00 Constipation, unspecified (principal); I10 Essential (primary) hypertension; K64.8 Other hemorrhoids; Z20.822 Contact with and (suspected) exposure to COVID-19; Z79.899 Other long term (current) drug therapy
CPT/HCPCS: 45378; 99152; 99153; G0378; J2250; J3010; U0003; J2175

== ENCOUNTER 2021-07-13 10:52 | Emergency (ER) | payer OTHER ==
[~2021-07-13] VITALS: Ht 167.6 cm; Wt 77.1 kg
[2021-07-13 10:55] VITALS: BP_SYST 143
[2021-07-13] MEDS ORDERED: LORazepam 1 MG TABLET PO ONE (11:45)
[2021-07-13 11:51] LABS: BASOPHILS % (AUTO) 0.3 % (0.0-2.0); EOSINOPHILS % (AUTO) 0.2 % (0.0-4.0); HEMATOCRIT 35.3 % (36-48); HEMOGLOBIN 11.5 g/dL (12.0-16.0); LYMPHOCYTES # (AUTO) 1.1 K/uL (1.0-5.5); LYMPHOCYTES % (AUTO) 15.9 % (20.5-51.5); MEAN CORPUSCULAR HEMOGLOBIN 27 pg (27-31); MEAN CORPUSCULAR HGB CONC 33 % (32-36); MEAN CORPUSCULAR VOLUME 84 fL (79.0-98.0); MONOCYTES # (AUTO) 0.2 K/uL (0.0-1.0); MONOCYTES % (AUTO) 3.2 % (1.7-9.3); NEUTROPHILS # (AUTO) 5.4 K/uL (1.8-7.7); NEUTROPHILS % (AUTO) 80.4 % (40.0-70.0); PLATELET COUNT (AUTO) 228 K/uL (130-430); RED BLOOD CELL COUNT(AUTO) 4.23 MIL/uL (4.2-6.2); RED CELL DISTRIBUTION WIDTH 14.3 % (9.0-15.0); WHITE BLOOD COUNT (AUTO) 6.8 K/uL (4.8-10.8)
--- NOTE | 2021-07-13 12:00 | NUR ---
ALERT AND ORIENTED X4 MOVES ALL EXT NO DRIFT, SPEACH IS CLEAR AND APPROPRIATE, SMILE SYMMETRICAL. VSS
[2021-07-13 12:02] LABS: CALCIUM 9.1 mg/dL (8.4-11.0); CREATININE 0.83 mg/dL (0.55-1.30); POTASSIUM 3.4 mmol/L (3.5-5.1)
[2021-07-13 12:07] LABS: ALBUMIN 3.6 g/dL (3.4-4.8); TOTAL BILIRUBIN 0.3 mg/dL (0.0-1.0)
[2021-07-13] MEDS ORDERED: LORA-258 PO (13:03)
[2021-07-13 13:17] VITALS: BP_SYST 122
--- NOTE | 2021-07-13 13:18 | NUR ---
Patient given written and verbal discharge instructions and verbalizes understanding. LUDIVINA LUZ MD discussed with patient the results and treatment provided. Patient in stable condition. ID arm band removed. IV catheter removed intact and dressing applied, no active bleeding. Rx of ATIVAN given. Patient educated on pain management and to follow up with PMD. Pain Scale 0. Opportunity for questions provided and answered. Medication side effect fact sheet provided.
== END 2021-07-13 13:17 | disposition home or self-care (01) ==
LOC: SED 10:52
DX: R42 Dizziness and giddiness (principal); Z79.899 Other long term (current) drug therapy
CPT/HCPCS: 36415; 70450-TC; 71045; 76376; 80053; 83880; 84484; 85025; 93005; 99285

== ENCOUNTER 2021-08-30 07:00 | Outpatient (CLI) | payer OTHER ==
[~2021-08-30 07:00] MED LIST changes: +LORA-258 PO
[2021-08-30 08:11] LABS: BASOPHILS % (AUTO) 0.3 % (0.0-2.0); EOSINOPHILS # (AUTO) 0.1 K/uL (0.0-0.4); EOSINOPHILS % (AUTO) 0.9 % (0.0-4.0); HEMATOCRIT 36.6 % (36-48); HEMOGLOBIN 12.1 g/dL (12.0-16.0); LYMPHOCYTES # (AUTO) 2.8 K/uL (1.0-5.5); LYMPHOCYTES % (AUTO) 46.8 % (20.5-51.5); MEAN CORPUSCULAR HEMOGLOBIN 28 pg (27-31); MEAN CORPUSCULAR HGB CONC 33 % (32-36); MEAN CORPUSCULAR VOLUME 84 fL (79.0-98.0); MONOCYTES # (AUTO) 0.5 K/uL (0.0-1.0); MONOCYTES % (AUTO) 7.8 % (1.7-9.3); NEUTROPHILS # (AUTO) 2.6 K/uL (1.8-7.7); NEUTROPHILS % (AUTO) 44.2 % (40.0-70.0); PLATELET COUNT (AUTO) 227 K/uL (130-430); RED BLOOD CELL COUNT(AUTO) 4.35 MIL/uL (4.2-6.2); RED CELL DISTRIBUTION WIDTH 14.1 % (9.0-15.0); WHITE BLOOD COUNT (AUTO) 5.9 K/uL (4.8-10.8)
[2021-08-30 08:57] LABS: ERYTHROCYTE SEDIMENTATION RATE 5 MM/HR (0-20)
[2021-08-30 09:03] LABS: BILIRUBIN,URINE NEGATIVE (NEGATIVE); BLOOD, URINE NEGATIVE (NEGATIVE); CLARITY/URINE CLEAR (CLEAR); COLOR,URINE YELLOW (YELLOW); GLUCOSE,URINE NEGATIVE (NEGATIVE); KETONES,URINE TRACE (NEGATIVE); LEUKOCYTE ESTERASE ,URINE NEGATIVE (NEGATIVE); NITRITE, URINE NEGATIVE (NEGATIVE); PH,URINE 5.5 (5.0-8.0); PROTEIN URINE NEGATIVE (NEGATIVE); UROBILINOGEN,URINE 0.2 (0.2-1.0)
[2021-08-30 09:04] LABS: ALANINE AMINOTRANSFERASE 27 U/L (12-78); ALBUMIN 3.7 g/dL (3.4-4.8); ANION GAP 9 (5-15); ASPARTATE AMINOTRANSFERASE 16 U/L (10-37); CALCIUM 8.9 mg/dL (8.4-11.0); CHLORIDE 106 mmol/L (98-107); CREATININE 0.52 mg/dL (0.55-1.30); GLUCOSE 86 mg/dL (70-99); POTASSIUM 3.6 mmol/L (3.5-5.1); SODIUM SERUM 143 mmol/L (136-145); TOTAL BILIRUBIN 0.3 mg/dL (0.0-1.0); UREA NITROGEN, BLOOD 16 mg/dL (8-21)
[2021-08-30 10:20] LABS: GFR AFRICAN AMERICAN 155 mL/min (>90)
[2021-08-30 11:59] LABS: CHOLESTEROL 244 mg/dL (<200); HDL CHOLESTEROL 93 mg/dL (>55); LDL CHOLESTEROL 126 mg/dL (<100); TRIGLYCERIDES 102 mg/dL (30-150)
[2021-08-30 12:12] LABS: C-REACTIVE PROTEIN QUANT < 0.2 mg/dL (0-0.5)
[2021-08-31 08:06] LABS: CORTISOL (SERUM) 0.9 ug/dL (.)
[2021-09-01 10:45] LABS: HEMOGLOBIN A1C 6.2 % (4.8-5.6)
== END 2021-08-30 18:40 | disposition home or self-care (01) ==
LOC: SLB 07:00
PROVIDERS: ATTEND Internal Medicine
DX: Z00.01 Encounter for general adult medical examination with abnormal findings (principal); R42 Dizziness and giddiness; E78.5 Hyperlipidemia, unspecified; R73.9 Hyperglycemia, unspecified; E56.9 Vitamin deficiency, unspecified; E23.7 Disorder of pituitary gland, unspecified
CPT/HCPCS: 36415; 80053; 80061; 81003; 82306; 82533; 82607; 83036; 84146; 84443; 85025; 85651-TC; 86140

== ENCOUNTER 2021-10-13 17:07 | Outpatient (CLI) | payer OTHER | END 2021-10-13 18:39 | disposition home or self-care (01) | LOC: SLB 17:07 | PROVIDERS: ATTEND Internal Medicine | DX: E27.40 Unspecified adrenocortical insufficiency (principal) | CPT/HCPCS: 36415; 82533 ==

== ENCOUNTER 2021-11-09 09:34 | Outpatient (CLI) | payer OTHER | END 2021-11-09 20:32 | disposition home or self-care (01) | LOC: SMA 09:34 | PROVIDERS: ATTEND Internal Medicine | DX: Z12.31 Encounter for screening mammogram for malignant neoplasm of breast (principal); E27.40 Unspecified adrenocortical insufficiency; I70.0 Atherosclerosis of aorta; Z90.49 Acquired absence of other specified parts of digestive tract | CPT/HCPCS: 76376; 77067 ==

== ENCOUNTER 2022-01-02 08:35 | Outpatient (CLI) | payer OTHER ==
[2022-01-02 09:13] LABS: BASOPHILS % (AUTO) 0.3 % (0.0-2.0); EOSINOPHILS # (AUTO) 0.1 K/uL (0.0-0.4); EOSINOPHILS % (AUTO) 1.3 % (0.0-4.0); HEMATOCRIT 37.6 % (36-48); HEMOGLOBIN 12.3 g/dL (12.0-16.0); LYMPHOCYTES # (AUTO) 2.1 K/uL (1.0-5.5); LYMPHOCYTES % (AUTO) 34.9 % (20.5-51.5); MEAN CORPUSCULAR HEMOGLOBIN 27 pg (27-31); MEAN CORPUSCULAR HGB CONC 33 % (32-36); MEAN CORPUSCULAR VOLUME 83 fL (79.0-98.0); MONOCYTES # (AUTO) 0.5 K/uL (0.0-1.0); MONOCYTES % (AUTO) 7.8 % (1.7-9.3); NEUTROPHILS # (AUTO) 3.4 K/uL (1.8-7.7); NEUTROPHILS % (AUTO) 55.7 % (40.0-70.0); PLATELET COUNT (AUTO) 270 K/uL (130-430); RED BLOOD CELL COUNT(AUTO) 4.56 MIL/uL (4.2-6.2); RED CELL DISTRIBUTION WIDTH 13.3 % (9.0-15.0); WHITE BLOOD COUNT (AUTO) 6.1 K/uL (4.8-10.8)
[2022-01-02 09:35] LABS: ALBUMIN 3.7 g/dL (3.4-4.8); CALCIUM 8.7 mg/dL (8.4-11.0); CREATININE 0.71 mg/dL (0.55-1.30); POTASSIUM 3.6 mmol/L (3.5-5.1); THYROID STIMULATING HORMONE 1.36 uIu/mL (0.36-3.74); TOTAL BILIRUBIN 0.5 mg/dL (0.0-1.0)
[2022-01-04 12:15] LABS: HEMOGLOBIN A1C 6.3 % (4.8-5.6)
== END 2022-01-02 20:48 | disposition home or self-care (01) ==
LOC: SLB 08:35
PROVIDERS: ATTEND Internal Medicine
DX: I10 Essential (primary) hypertension (principal); R73.9 Hyperglycemia, unspecified; E78.5 Hyperlipidemia, unspecified; E55.9 Vitamin D deficiency, unspecified; E56.9 Vitamin deficiency, unspecified
CPT/HCPCS: 36415; 80053; 80061; 82306; 82607; 83036; 84443; 85025

== ENCOUNTER 2022-01-03 08:01 | Outpatient (CLI) | payer OTHER | END 2022-01-03 20:45 | disposition home or self-care (01) | LOC: SUS 08:01 | PROVIDERS: ATTEND Internal Medicine | DX: I82.409 Acute embolism and thrombosis of unspecified deep veins of unspecified lower extremity (principal) | CPT/HCPCS: 93970 ==

== ENCOUNTER → 2022-04-05 | Outpatient (CLI) | payer OTHER ==
[2022-04-05 07:50] LABS: BASOPHILS % (AUTO) 0.4 % (0.0-2.0); EOSINOPHILS # (AUTO) 0.1 K/uL (0.0-0.4); EOSINOPHILS % (AUTO) 1.3 % (0.0-4.0); HEMATOCRIT 34.3 % (36-48); HEMOGLOBIN 11.4 g/dL (12.0-16.0); LYMPHOCYTES # (AUTO) 1.8 K/uL (1.0-5.5); LYMPHOCYTES % (AUTO) 36.8 % (20.5-51.5); MEAN CORPUSCULAR HEMOGLOBIN 27 pg (27-31); MEAN CORPUSCULAR HGB CONC 33 % (32-36); MEAN CORPUSCULAR VOLUME 82 fL (79.0-98.0); MONOCYTES # (AUTO) 0.4 K/uL (0.0-1.0); MONOCYTES % (AUTO) 8.5 % (1.7-9.3); NEUTROPHILS # (AUTO) 2.6 K/uL (1.8-7.7); PLATELET COUNT (AUTO) 240 K/uL (130-430); RED BLOOD CELL COUNT(AUTO) 4.17 MIL/uL (4.2-6.2); RED CELL DISTRIBUTION WIDTH 14.9 % (9.0-15.0)
[2022-04-05 08:27] LABS: ALBUMIN 3.2 g/dL (3.4-4.8); CALCIUM 8.8 mg/dL (8.4-11.0); CREATININE 0.71 mg/dL (0.55-1.30); POTASSIUM 3.4 mmol/L (3.5-5.1); THYROID STIMULATING HORMONE 1.05 uIu/mL (0.36-3.74); TOTAL BILIRUBIN 0.2 mg/dL (0.0-1.0)
[2022-04-06 09:41] LABS: HEMOGLOBIN A1C 6.4 % (4.8-5.6)
== END | disposition home or self-care (01) ==
LOC: SLB 07:08
PROVIDERS: ATTEND Internal Medicine
DX: I10 Essential (primary) hypertension (principal); E03.9 Hypothyroidism, unspecified; E55.9 Vitamin D deficiency, unspecified; E78.5 Hyperlipidemia, unspecified; R73.9 Hyperglycemia, unspecified
CPT/HCPCS: 36415; 80053; 80061; 82306; 83036; 84443; 85025

== ENCOUNTER 2022-07-22 10:12 | Emergency (ER) | payer OTHER ==
[~2022-07-22] VITALS: Ht 157.5 cm; Wt 72.6 kg
[2022-07-22 10:15] VITALS: BP_SYST 136
--- NOTE | 2022-07-22 11:20 | NUR ---
ER at bedside examining patient.
--- NOTE | 2022-07-22 11:30 | NUR ---
Note rodriguez in EDM - 07/22/22 at 1203 by CLIVE 62-year-old female with no past medical history, presents with palpitations dizziness. Patient states symptoms started earlier this morning while she was working. She denies any chest pain or shortness of breath. Patient states she has had history of similar symptoms in the past, been evaluated by her PCP for this. She states that her dizziness is nonpositional. Denies any vomiting or diarrhea, complains of mild nausea. No abdominal pain. No urinary symptoms. No recent fevers or illnesses. Past medical history Diabetes pt denies morning medication compliance.
[2022-07-22] MEDS ORDERED: ACETAMINOPHEN 500 MG TABLET PO ONE (11:45)
[2022-07-22] MEDS ORDERED: MECLIZINE HCL 25 MG TABLET (ANITVERT) PO ONE (11:45)
[2022-07-22] MEDS ORDERED: ONDANSETRON 4 MG ODT TAB PO ONE (11:45)
--- NOTE | 2022-07-22 12:03 | NUR ---
62-year-old female with no past medical history, presents with palpitations dizziness. Patient states symptoms started earlier this morning while she was working. She denies any chest pain or shortness of breath. Patient states she has had history of similar symptoms in the past, been evaluated by her PCP for this. She states that her dizziness is nonpositional. Denies any vomiting or diarrhea, complains of mild nausea. No abdominal pain. No urinary symptoms. No recent fevers or illnesses.
[2022-07-22 12:05] LABS: BASOPHILS % (AUTO) 0.5 % (0.0-2.0); EOSINOPHILS % (AUTO) 0.6 % (0.0-4.0); HEMATOCRIT 31.5 % (36-48); HEMOGLOBIN 10.3 g/dL (12.0-16.0); LYMPHOCYTES # (AUTO) 1.2 K/uL (1.0-5.5); LYMPHOCYTES % (AUTO) 18.2 % (20.5-51.5); MEAN CORPUSCULAR HEMOGLOBIN 26 pg (27-31); MEAN CORPUSCULAR HGB CONC 33 % (32-36); MEAN CORPUSCULAR VOLUME 81 fL (79.0-98.0); MONOCYTES # (AUTO) 0.4 K/uL (0.0-1.0); MONOCYTES % (AUTO) 6.1 % (1.7-9.3); NEUTROPHILS # (AUTO) 4.9 K/uL (1.8-7.7); NEUTROPHILS % (AUTO) 74.6 % (40.0-70.0); PLATELET COUNT (AUTO) 270 K/uL (130-430); RED CELL DISTRIBUTION WIDTH 13.5 % (9.0-15.0); WHITE BLOOD COUNT (AUTO) 6.6 K/uL (4.8-10.8)
[2022-07-22 12:15] LABS: ANION GAP 5 (5-15); CALCIUM 8.7 mg/dL (8.4-11.0); CHLORIDE 108 mmol/L (98-107); CREATININE 0.57 mg/dL (0.55-1.30); GLUCOSE 107 mg/dL (70-99); UREA NITROGEN, BLOOD 21 mg/dL (8-21)
[2022-07-22 12:17] LABS: GFR AFRICAN AMERICAN 139 mL/min (>90)
[2022-07-22 12:26] LABS: ALANINE AMINOTRANSFERASE 25 U/L (12-78); ALBUMIN 3.4 g/dL (3.4-4.8); ASPARTATE AMINOTRANSFERASE 18 U/L (10-37); TOTAL BILIRUBIN 0.2 mg/dL (0.0-1.0)
[2022-07-22] MEDS ORDERED: MECL-225 PO (12:55)
--- NOTE | 2022-07-22 13:24 | NUR ---
Patient given written and verbal discharge instructions and verbalizes understanding. ER MD discussed with patient the results and treatment provided. Patient in stable condition. ID arm band removed. Patient educated on pain management and to follow up with PMD. Opportunity for questions provided and answered. Medication side effect fact sheet provided.
[2022-07-22 13:25] VITALS: BP_SYST 136
== END 2022-07-22 13:24 | disposition home or self-care (01) ==
LOC: SED 10:12
DX: R00.2 Palpitations (principal); R42 Dizziness and giddiness; Z79.899 Other long term (current) drug therapy
CPT/HCPCS: 99285; 71045; 80053; 85025; 84484; 36415; 93005; J8597; Q0162

== ENCOUNTER 2022-09-07 16:20 | Outpatient (CLI) | payer OTHER ==
[~2022-09-07 16:20] MED LIST changes: +MECL-225 PO
[2022-09-07 18:16] LABS: TOTAL IRON BIND. CAPACITY 461 ug/dL (250-450)
[2022-09-07 18:17] LABS: BASOPHILS % (AUTO) 0.4 % (0.0-2.0); EOSINOPHILS # (AUTO) 0.1 K/uL (0.0-0.4); EOSINOPHILS % (AUTO) 2.6 % (0.0-4.0); HEMATOCRIT 29.9 % (36-48); HEMOGLOBIN 9.7 g/dL (12.0-16.0); LYMPHOCYTES # (AUTO) 1.5 K/uL (1.0-5.5); LYMPHOCYTES % (AUTO) 27.2 % (20.5-51.5); MEAN CORPUSCULAR HEMOGLOBIN 25 pg (27-31); MEAN CORPUSCULAR HGB CONC 32 % (32-36); MEAN CORPUSCULAR VOLUME 78 fL (79.0-98.0); MONOCYTES # (AUTO) 0.3 K/uL (0.0-1.0); MONOCYTES % (AUTO) 5.6 % (1.7-9.3); NEUTROPHILS # (AUTO) 3.5 K/uL (1.8-7.7); NEUTROPHILS % (AUTO) 64.2 % (40.0-70.0); PLATELET COUNT (AUTO) 311 K/uL (130-430); RED BLOOD CELL COUNT(AUTO) 3.84 MIL/uL (4.2-6.2); RED CELL DISTRIBUTION WIDTH 13.9 % (9.0-15.0); WHITE BLOOD COUNT (AUTO) 5.4 K/uL (4.8-10.8)
[2022-09-07 18:21] LABS: FREE T4 (FREE THYROXINE) 0.9 ng/dL (0.6-1.6); THYROID STIMULATING HORMONE 1.48 uIu/mL (0.34-4.82)
== END 2022-09-07 18:54 | disposition home or self-care (01) ==
LOC: SLB 16:20
PROVIDERS: ATTEND Internal Medicine
DX: D64.9 Anemia, unspecified (principal)
CPT/HCPCS: 36415; 82607; 82746; 83540; 83550; 84439; 84443; 85025

== ENCOUNTER 2022-10-06 07:02 | Day surgery (SDC) | payer OTHER ==
[~2022-10-06] VITALS: Ht 165.1 cm; Wt 80.7 kg
[2022-10-06] MEDS ORDERED: BENZOCAINE 20% 0.5mL UD SPRAY MM ONE ×2 (08:31→08:32)
[2022-10-06] MEDS ORDERED: MEPERIDINE 50 MG/ML VIAL ONE (08:32)
[2022-10-06] MEDS ORDERED: MIDAZOLAM HCL 5 MG/5 ML VIAL ONE (08:32)
[2022-10-06] MEDS ORDERED: SIMETHICONE 40 MG/0.6 ML ML ONE (08:32)
[2022-10-06 12:29] VITALS: BP_SYST 117
== END 2022-10-06 11:30 | disposition home or self-care (01) ==
LOC: SDS 07:02 → SMU 07:03 → SDS 11:30
PROVIDERS: ATTEND Internal Medicine
DX: R10.13 Epigastric pain (principal); K29.50 Unspecified chronic gastritis without bleeding; K29.80 Duodenitis without bleeding; B96.81 Helicobacter pylori [H. pylori] as the cause of diseases classified elsewhere; E78.5 Hyperlipidemia, unspecified; Z90.49 Acquired absence of other specified parts of digestive tract; Z90.710 Acquired absence of both cervix and uterus; Z79.899 Other long term (current) drug therapy; Z20.822 Contact with and (suspected) exposure to COVID-19
CPT/HCPCS: 43239; 87426; 36415; 88305; 88312; 88313; 99152; G0378; J2250; J2175

== ENCOUNTER 2022-11-07 06:34 | Outpatient (CLI) | payer OTHER ==
[2022-11-07 07:30] LABS: BASOPHILS % (AUTO) 0.3 % (0.0-2.0); EOSINOPHILS # (AUTO) 0.1 K/uL (0.0-0.4); EOSINOPHILS % (AUTO) 2.1 % (0.0-4.0); HEMATOCRIT 33.7 % (36-48); HEMOGLOBIN 10.6 g/dL (12.0-16.0); LYMPHOCYTES # (AUTO) 2.7 K/uL (1.0-5.5); LYMPHOCYTES % (AUTO) 42.7 % (20.5-51.5); MEAN CORPUSCULAR HEMOGLOBIN 25 pg (27-31); MEAN CORPUSCULAR HGB CONC 32 % (32-36); MEAN CORPUSCULAR VOLUME 78 fL (79.0-98.0); MONOCYTES # (AUTO) 0.5 K/uL (0.0-1.0); MONOCYTES % (AUTO) 8.2 % (1.7-9.3); NEUTROPHILS # (AUTO) 2.9 K/uL (1.8-7.7); NEUTROPHILS % (AUTO) 46.7 % (40.0-70.0); PLATELET COUNT (AUTO) 250 K/uL (130-430); RED BLOOD CELL COUNT(AUTO) 4.31 MIL/uL (4.2-6.2); RED CELL DISTRIBUTION WIDTH 17.5 % (9.0-15.0); WHITE BLOOD COUNT (AUTO) 6.3 K/uL (4.8-10.8)
[2022-11-07 07:45] LABS: ALBUMIN 3.5 g/dL (3.4-4.8); CALCIUM 8.8 mg/dL (8.4-11.0); CREATININE 0.6 mg/dL (0.55-1.30); TOTAL BILIRUBIN 0.2 mg/dL (0.0-1.0); TOTAL IRON BIND. CAPACITY 462 ug/dL (250-450)
== END 2022-11-07 20:20 | disposition home or self-care (01) ==
LOC: SLB 06:34
PROVIDERS: ATTEND Internal Medicine
DX: D64.9 Anemia, unspecified (principal)
CPT/HCPCS: 36415; 80053; 83540; 83550; 85025

== ENCOUNTER 2022-11-07 15:37 | Outpatient (CLI) | payer OTHER | END 2022-11-07 20:20 | disposition home or self-care (01) | LOC: SMA 15:37 | PROVIDERS: ATTEND Internal Medicine | DX: Z12.31 Encounter for screening mammogram for malignant neoplasm of breast (principal) | CPT/HCPCS: 77067 ==

== ENCOUNTER 2023-02-15 07:27 | Outpatient (CLI) | payer OTHER ==
[2023-02-15 08:32] LABS: CALCIUM 8.6 mg/dL (8.4-11.0); CREATININE 0.75 mg/dL (0.55-1.30)
[2023-02-15 08:40] LABS: BASOPHILS % (AUTO) 0.3 % (0.0-2.0); EOSINOPHILS % (AUTO) 0.6 % (0.0-4.0); HEMATOCRIT 40.1 % (36-48); LYMPHOCYTES # (AUTO) 1.8 K/uL (1.0-5.5); LYMPHOCYTES % (AUTO) 27.2 % (20.5-51.5); MEAN CORPUSCULAR HEMOGLOBIN 27 pg (27-31); MEAN CORPUSCULAR HGB CONC 32 % (32-36); MEAN CORPUSCULAR VOLUME 84 fL (79.0-98.0); MONOCYTES # (AUTO) 0.5 K/uL (0.0-1.0); MONOCYTES % (AUTO) 7.6 % (1.7-9.3); NEUTROPHILS # (AUTO) 4.2 K/uL (1.8-7.7); NEUTROPHILS % (AUTO) 64.3 % (40.0-70.0); PLATELET COUNT (AUTO) 285 K/uL (130-430); RED BLOOD CELL COUNT(AUTO) 4.79 MIL/uL (4.2-6.2); RED CELL DISTRIBUTION WIDTH 15.5 % (9.0-15.0); WHITE BLOOD COUNT (AUTO) 6.6 K/uL (4.8-10.8)
[2023-02-15 08:44] LABS: TOTAL IRON BIND. CAPACITY 430 ug/dL (250-450)
== END 2023-02-15 19:49 | disposition short-term general hospital (02) ==
LOC: SLB 07:27
PROVIDERS: ATTEND Internal Medicine
DX: D64.9 Anemia, unspecified (principal)
CPT/HCPCS: 36415; 80048; 83540; 83550; 85025

== ENCOUNTER 2023-04-14 06:47 | Outpatient (CLI) | payer OTHER | END 2023-04-14 15:00 | disposition home or self-care (01) | LOC: SUS 06:47 | PROVIDERS: ATTEND Internal Medicine | DX: R42 Dizziness and giddiness (principal); E04.9 Nontoxic goiter, unspecified | CPT/HCPCS: 76536-TC; 93880 ==

== ENCOUNTER 2023-05-11 08:03 | Outpatient (CLI) | payer OTHER ==
[2023-05-11 08:46] LABS: BASOPHILS % (AUTO) 0.3 % (0.0-2.0); EOSINOPHILS % (AUTO) 0.6 % (0.0-4.0); HEMOGLOBIN 12.4 g/dL (12.0-16.0); LYMPHOCYTES # (AUTO) 2.3 K/uL (1.0-5.5); MEAN CORPUSCULAR HEMOGLOBIN 27 pg (27-31); MEAN CORPUSCULAR HGB CONC 32 % (32-36); MEAN CORPUSCULAR VOLUME 85 fL (79.0-98.0); MONOCYTES # (AUTO) 0.4 K/uL (0.0-1.0); MONOCYTES % (AUTO) 6.7 % (1.7-9.3); NEUTROPHILS # (AUTO) 3.5 K/uL (1.8-7.7); NEUTROPHILS % (AUTO) 55.4 % (40.0-70.0); PLATELET COUNT (AUTO) 261 K/uL (130-430); RED CELL DISTRIBUTION WIDTH 13.4 % (9.0-15.0); WHITE BLOOD COUNT (AUTO) 6.3 K/uL (4.8-10.8)
[2023-05-11 08:46] LABS: BILIRUBIN,URINE NEGATIVE (NEGATIVE); BLOOD, URINE NEGATIVE (NEGATIVE); CLARITY/URINE CLEAR (CLEAR); COLOR,URINE YELLOW (YELLOW); GLUCOSE,URINE NEGATIVE (NEGATIVE); KETONES,URINE NEGATIVE (NEGATIVE); LEUKOCYTE ESTERASE ,URINE NEGATIVE (NEGATIVE); NITRITE, URINE NEGATIVE (NEGATIVE); PROTEIN URINE NEGATIVE (NEGATIVE); UROBILINOGEN,URINE 0.2 (0.2-1.0)
[2023-05-11 09:15] LABS: ALBUMIN 3.7 g/dL (3.4-4.8); CALCIUM 9.3 mg/dL (8.4-11.0); CREATININE 0.58 mg/dL (0.55-1.30); POTASSIUM 3.7 mmol/L (3.5-5.1); THYROID STIMULATING HORMONE 2.93 uIu/mL (0.36-3.74); TOTAL BILIRUBIN 0.3 mg/dL (0.0-1.0)
== END 2023-05-11 18:57 | disposition home or self-care (01) ==
LOC: SLB 08:03
PROVIDERS: ATTEND Internal Medicine
DX: I10 Essential (primary) hypertension (principal); E78.5 Hyperlipidemia, unspecified; E03.9 Hypothyroidism, unspecified; E55.9 Vitamin D deficiency, unspecified; E56.9 Vitamin deficiency, unspecified
CPT/HCPCS: 36415; 80053; 80061; 81003; 82306; 82607; 83037; 84443; 85025

== ENCOUNTER 2023-07-26 10:24 | Outpatient (CLI) | payer OTHER | END 2023-07-26 20:52 | disposition home or self-care (01) | LOC: SMI 10:24 | PROVIDERS: ATTEND Internal Medicine | DX: R42 Dizziness and giddiness (principal) | CPT/HCPCS: 70551 ==

== ENCOUNTER 2023-08-10 07:36 | Outpatient (CLI) | payer OTHER ==
[2023-08-10 08:19] LABS: BASOPHILS % (AUTO) 0.5 % (0.0-2.0); EOSINOPHILS # (AUTO) 0.1 K/uL (0.0-0.4); HEMATOCRIT 37.4 % (36-48); HEMOGLOBIN 12.5 g/dL (12.0-16.0); LYMPHOCYTES # (AUTO) 2.4 K/uL (1.0-5.5); LYMPHOCYTES % (AUTO) 34.8 % (20.5-51.5); MEAN CORPUSCULAR HEMOGLOBIN 28 pg (27-31); MEAN CORPUSCULAR HGB CONC 33 % (32-36); MEAN CORPUSCULAR VOLUME 84 fL (79.0-98.0); MONOCYTES # (AUTO) 0.5 K/uL (0.0-1.0); MONOCYTES % (AUTO) 7.2 % (1.7-9.3); NEUTROPHILS # (AUTO) 3.9 K/uL (1.8-7.7); NEUTROPHILS % (AUTO) 56.5 % (40.0-70.0); PLATELET COUNT (AUTO) 252 K/uL (130-430); RED BLOOD CELL COUNT(AUTO) 4.43 MIL/uL (4.2-6.2); RED CELL DISTRIBUTION WIDTH 13.9 % (9.0-15.0); WHITE BLOOD COUNT (AUTO) 6.9 K/uL (4.8-10.8)
[2023-08-10 08:25] LABS: TOTAL IRON BIND. CAPACITY 414 ug/dL (250-450)
[2023-08-10 08:37] LABS: ALBUMIN 3.5 g/dL (3.4-4.8); CREATININE 0.66 mg/dL (0.55-1.30); POTASSIUM 3.7 mmol/L (3.5-5.1); THYROID STIMULATING HORMONE 1.81 uIu/mL (0.34-4.82); TOTAL BILIRUBIN 0.3 mg/dL (0.0-1.0); TOTAL PROTEIN, SERUM 6.8 g/dL (6.4-8.3)
== END 2023-08-10 18:14 | disposition home or self-care (01) ==
LOC: SLB 07:36
PROVIDERS: ATTEND Internal Medicine
DX: E78.5 Hyperlipidemia, unspecified (principal); D64.9 Anemia, unspecified
CPT/HCPCS: 36415; 80053; 80061; 83540; 83550; 84443; 85025

== ENCOUNTER 2023-11-09 07:49 | Outpatient (CLI) | payer OTHER ==
[2023-11-09 08:54] LABS: BASOPHILS % (AUTO) 0.4 % (0.0-2.0); EOSINOPHILS # (AUTO) 0.1 K/uL (0.0-0.4); EOSINOPHILS % (AUTO) 1.1 % (0.0-4.0); HEMATOCRIT 35.8 % (36-48); LYMPHOCYTES # (AUTO) 2.7 K/uL (1.0-5.5); LYMPHOCYTES % (AUTO) 43.2 % (20.5-51.5); MEAN CORPUSCULAR HEMOGLOBIN 28 pg (27-31); MEAN CORPUSCULAR HGB CONC 33 % (32-36); MEAN CORPUSCULAR VOLUME 83 fL (79.0-98.0); MONOCYTES # (AUTO) 0.5 K/uL (0.0-1.0); MONOCYTES % (AUTO) 7.7 % (1.7-9.3); NEUTROPHILS % (AUTO) 47.6 % (40.0-70.0); PLATELET COUNT (AUTO) 264 K/uL (130-430); RED BLOOD CELL COUNT(AUTO) 4.31 MIL/uL (4.2-6.2); RED CELL DISTRIBUTION WIDTH 13.3 % (9.0-15.0); WHITE BLOOD COUNT (AUTO) 6.3 K/uL (4.8-10.8)
[2023-11-09 09:51] LABS: ALBUMIN 3.5 g/dL (3.4-4.8); CALCIUM 8.5 mg/dL (8.4-11.0); CREATININE 0.7 mg/dL (0.55-1.30); POTASSIUM 3.6 mmol/L (3.5-5.1); TOTAL BILIRUBIN 0.3 mg/dL (0.0-1.0); TOTAL PROTEIN, SERUM 6.7 g/dL (6.4-8.3)
== END 2023-11-09 20:59 | disposition home or self-care (01) ==
LOC: SLB 07:49
PROVIDERS: ATTEND Internal Medicine
DX: E78.5 Hyperlipidemia, unspecified (principal); E56.9 Vitamin deficiency, unspecified; D64.9 Anemia, unspecified; E55.9 Vitamin D deficiency, unspecified
CPT/HCPCS: 36415; 80053; 80061; 84443; 85025

== ENCOUNTER 2023-12-08 07:47 | Outpatient (CLI) | payer OTHER ==
[2023-12-08 10:12] LABS: FREE T4 (FREE THYROXINE) 0.9 ng/dL (0.6-1.6); THYROID STIMULATING HORMONE 1.19 uIu/mL (0.34-4.82)
== END 2023-12-08 19:33 | disposition home or self-care (01) ==
LOC: SLB 07:47
PROVIDERS: ATTEND Internal Medicine
DX: E04.1 Nontoxic single thyroid nodule (principal)
CPT/HCPCS: 36415; 84439; 84443; 86376

== ENCOUNTER 2024-02-15 07:13 | Emergency (ER) | payer OTHER ==
[~2024-02-15] VITALS: Ht 165.1 cm; Wt 63.5 kg
[2024-02-15 07:21] VITALS: BP_SYST 139; PULSE 68; RESP 18; TEMP 98.3; O2SAT 98
[2024-02-15] MEDS: ONDANSETRON 4 MG ODT TAB PO ONE (07:47)
[2024-02-15 08:00] LABS: BASOPHILS % (AUTO) 0.1 % (0.0-2.0); EOSINOPHILS # (AUTO) 0.1 K/uL (0.0-0.4); EOSINOPHILS % (AUTO) 0.9 % (0.0-4.0); HEMATOCRIT 37.1 % (36-48); LYMPHOCYTES # (AUTO) 0.8 K/uL (1.0-5.5); LYMPHOCYTES % (AUTO) 9.9 % (20.5-51.5); MEAN CORPUSCULAR HEMOGLOBIN 27 pg (27-31); MEAN CORPUSCULAR HGB CONC 33 % (32-36); MEAN CORPUSCULAR VOLUME 83 fL (79.0-98.0); MONOCYTES # (AUTO) 0.3 K/uL (0.0-1.0); MONOCYTES % (AUTO) 3.9 % (1.7-9.3); NEUTROPHILS % (AUTO) 85.2 % (40.0-70.0); PLATELET COUNT (AUTO) 267 K/uL (130-430); RED BLOOD CELL COUNT(AUTO) 4.47 MIL/uL (4.2-6.2); RED CELL DISTRIBUTION WIDTH 15.1 % (9.0-15.0); WHITE BLOOD COUNT (AUTO) 8.2 K/uL (4.8-10.8)
[2024-02-15 08:10] LABS: BILIRUBIN,URINE NEGATIVE (NEGATIVE); BLOOD, URINE NEGATIVE (NEGATIVE); CLARITY/URINE CLEAR (CLEAR); COLOR,URINE YELLOW (YELLOW); GLUCOSE,URINE NEGATIVE (NEGATIVE); KETONES,URINE TRACE (NEGATIVE); LEUKOCYTE ESTERASE ,URINE NEGATIVE (NEGATIVE); NITRITE, URINE NEGATIVE (NEGATIVE); PROTEIN URINE NEGATIVE (NEGATIVE); UROBILINOGEN,URINE 0.2 (0.2-1.0)
[2024-02-15 08:18] LABS: ALANINE AMINOTRANSFERASE 46 U/L (12-78); ALBUMIN 3.4 g/dL (3.4-4.8); ANION GAP 7 (5-15); ASPARTATE AMINOTRANSFERASE 19 U/L (10-37); CALCIUM 8.8 mg/dL (8.4-11.0); CARBON DIOXIDE 27 mmol/L (23-29); CHLORIDE 110 mmol/L (98-107); CREATININE 0.63 mg/dL (0.55-1.30); GFR AFRICAN AMERICAN 123 mL/min (>90); GFR NON AFRICAN-AMERICAN 102 mL/min (>90); GLUCOSE 92 mg/dL (74-106); POTASSIUM 3.7 mmol/L (3.5-5.1); SODIUM SERUM 144 mmol/L (136-145); TOTAL BILIRUBIN 0.4 mg/dL (0.0-1.0); TOTAL PROTEIN, SERUM 6.5 g/dL (6.4-8.3); UREA NITROGEN, BLOOD 22 mg/dL (8-21)
[2024-02-15 08:26] LABS: AMYLASE 67 U/L (0-100); BILIRUBIN,DIRECT 0.1 mg/dL (0.0-0.3); LACTATE DEHYDROGENASE 289 U/L (81-234); LIPASE 46 U/L (16-77)
[2024-02-15 08:39] LABS: PROTHROMBIN TIME 10.2 SECS (9.5-12.5)
[2024-02-15] MEDS ORDERED: HYDR-3917 PO (09:22)
[2024-02-15] MEDS ORDERED: ONDA-8 TL (09:22)
[2024-02-15 09:35] VITALS: BP_SYST 139; PULSE 68; RESP 18; TEMP 98.3; O2SAT 98
== END 2024-02-15 09:35 | disposition home or self-care (01) ==
LOC: SED 07:13
DX: R10.13 Epigastric pain (principal); R11.2 Nausea with vomiting, unspecified; Z79.899 Other long term (current) drug therapy; Z79.2 Long term (current) use of antibiotics
CPT/HCPCS: 99284; 74176; 80076; 80048; 81001; 82150; 83615; 83690; 85025; 85610; 85730; 84484; 36415; 83605; 82397; Q0162; 81003

== ENCOUNTER 2024-04-04 07:57 | Outpatient (CLI) | payer OTHER ==
[~2024-04-04 07:57] MED LIST changes: +HYDR-3917 PO; +ONDA-8 TL
[2024-04-04 08:50] LABS: BASOPHILS % (AUTO) 0.5 % (0.0-2.0); EOSINOPHILS # (AUTO) 0.1 K/uL (0.0-0.4); EOSINOPHILS % (AUTO) 1.9 % (0.0-4.0); HEMATOCRIT 32.6 % (36-48); HEMOGLOBIN 10.5 g/dL (12.0-16.0); LYMPHOCYTES # (AUTO) 1.4 K/uL (1.0-5.5); LYMPHOCYTES % (AUTO) 24.4 % (20.5-51.5); MEAN CORPUSCULAR HEMOGLOBIN 26 pg (27-31); MEAN CORPUSCULAR HGB CONC 32 % (32-36); MEAN CORPUSCULAR VOLUME 81 fL (79.0-98.0); MONOCYTES # (AUTO) 0.4 K/uL (0.0-1.0); MONOCYTES % (AUTO) 7.1 % (1.7-9.3); NEUTROPHILS # (AUTO) 3.8 K/uL (1.8-7.7); NEUTROPHILS % (AUTO) 66.1 % (40.0-70.0); PLATELET COUNT (AUTO) 366 K/uL (130-430); RED BLOOD CELL COUNT(AUTO) 4.02 MIL/uL (4.2-6.2); RED CELL DISTRIBUTION WIDTH 14.6 % (9.0-15.0); WHITE BLOOD COUNT (AUTO) 5.7 K/uL (4.8-10.8)
[2024-04-04 09:18] LABS: HEMOGLOBIN A1C 6.1 % (<5.7)
[2024-04-04 09:44] LABS: ALBUMIN 3.5 g/dL (3.4-4.8); CALCIUM 9.1 mg/dL (8.4-11.0); CREATININE 0.75 mg/dL (0.55-1.30); POTASSIUM 3.6 mmol/L (3.5-5.1); THYROID STIMULATING HORMONE 2.7 uIu/mL (0.34-4.82); TOTAL BILIRUBIN 0.4 mg/dL (0.0-1.0)
[2024-04-04 09:59] LABS: TOTAL IRON BIND. CAPACITY 469 ug/dL (250-450)
== END 2024-04-04 19:50 | disposition home or self-care (01) ==
LOC: SLB 07:57
PROVIDERS: ATTEND Internal Medicine
DX: D64.9 Anemia, unspecified (principal); E03.9 Hypothyroidism, unspecified; R73.9 Hyperglycemia, unspecified; E78.5 Hyperlipidemia, unspecified
CPT/HCPCS: 36415; 80053; 80061; 83037; 83540; 83550; 84443; 85025

== ENCOUNTER 2024-04-12 09:44 | Outpatient (CLI) | payer OTHER | END 2024-04-12 18:14 | disposition home or self-care (01) | LOC: SMI 09:44 | PROVIDERS: ATTEND Internal Medicine | DX: Z12.31 Encounter for screening mammogram for malignant neoplasm of breast (principal); S43.431A Superior glenoid labrum lesion of right shoulder, initial encounter; M19.011 Primary osteoarthritis, right shoulder; M75.81 Other shoulder lesions, right shoulder; M25.511 Pain in right shoulder; R60.0 Localized edema; X58.XXXA Exposure to other specified factors, initial encounter; Y93.89 Activity, other specified; Y92.89 Other specified places as the place of occurrence of the external cause; Y99.8 Other external cause status | CPT/HCPCS: 73221; 77067 ==

== ENCOUNTER 2024-04-15 15:07 | Outpatient (CLI) | payer OTHER ==
[2024-04-15 16:21] LABS: BILIRUBIN,URINE NEGATIVE (NEGATIVE); BLOOD, URINE NEGATIVE (NEGATIVE); CLARITY/URINE SL CLOUDY (CLEAR); COLOR,URINE YELLOW (YELLOW); GLUCOSE,URINE NEGATIVE (NEGATIVE); KETONES,URINE TRACE (NEGATIVE); LEUKOCYTE ESTERASE ,URINE 1+ (NEGATIVE); NITRITE, URINE POSITIVE (NEGATIVE); PROTEIN URINE NEGATIVE (NEGATIVE); UROBILINOGEN,URINE 0.2 (0.2-1.0)
[2024-04-15 16:49] LABS: BACTERIA,URINE MANY /HPF (None Seen); MUCUS,URINE 3+ /LPF (None Seen); RBC,URINE 0-3 /HPF (0-3); WBC,URINE 20-50 /HPF (0-3)
== END 2024-04-15 20:25 | disposition home or self-care (01) ==
LOC: SLB 15:07
PROVIDERS: ATTEND Internal Medicine
DX: N39.0 Urinary tract infection, site not specified (principal)
CPT/HCPCS: 81000; 81001; 81015; 87086; 87186